=== PATIENT | female | born 1990 | race Caucasian/White ===

== ENCOUNTER 2017-04-22 13:02 | Emergency (ER) | payer BC ==
[2017-04-22] MEDS ORDERED: Metoclopramide HCl 10 MG/2 ML VIAL ONE (13:50)
--- NOTE | 2017-04-22 14:14 | CT ---
CT BRAIN PERFORMED WITHOUT CONTRAST ENHANCEMENT: HISTORY: Syncopal episode. FINDINGS: The ventricular and cisternal system is within normal limits. There are no signs of intracerebral h emorrhage or extraaxial fluid collections. The mastoid air cells and visualized sinuses are clear. IMPRESSION: No acute intracranial abnormalities. POS: [facility]
[2017-04-22 14:19] LABS: #Monocytes 0.4 thou/uL (0.11-0.59); #Neutrophils 7.1 thou/uL (1.40-6.50); %Basophils 0.4 % (0.0-1.0); %Eosinophils 0.1 % (0.0-10.0); %Lymphocytes 11.8 % (21.0-51.0); %Monocytes 4.2 % (0.0-10.0); Hematocrit 43.7 % (36.0-47.0); Mean Platelet Volume 8.3 fL (7.4-10.4); Red Blood Cell (RBC) Count 4.55 mill/uL (4.20-5.40); White Blood Cell (WBC) Count 8.5 thou/uL (4.8-10.8)
[2017-04-22 14:34] LABS: Bilirubin Negative (Negative); Blood, Urine Negative (Negative); Glucose, Urine (Dipstick) Negative (Negative); Ketone, Urine 40 mg/dL (Negative); Nitrite Negative (Negative); Protein, Urine (Dipstick) Negative (Neg-Trace); Urobilinogen 0.2 mg/dL (0.2-1.0)
[2017-04-22 14:39] LABS: Bacteria/HPF Rare-Few HPF (None Seen); Hyaline Casts/LPF 0-3 HYALINE CAST LPF (0-3 Hyaline); WBC/HPF 0-3 HPF (0-3)
[2017-04-22 14:39] LABS: ALT (SGPT) 16 U/L (8-55); AST (SGOT) 18 U/L (5-34); Alkaline Phosphatase 66 U/L (40-150); Anion Gap 10 mmol/L (10-20); BUN (Urea Nitrogen) 12 mg/dL (7.0-18.7); Bilirubin, Total 0.9 mg/dL (0.2-1.2); CK (CPK) 148 U/L (29-168); Calc. Creatinine Clearance 0 mL/min (70-130); Calcium 9.7 mg/dL (7.8-10.44); Carbon Dioxide 28 mmol/L (22-29); Chloride 104 mmol/L (98-107); Estimated GFR-MDRD Greater than 90; Globulin 2.8 g/dL (2.4-3.5); Lipase 4 U/L (8-78); Protein, Total 6.7 g/dL (6.0-8.3)
== END 2017-04-22 15:06 | disposition home or self-care (01) ==
LOC: ERS 13:02
DX: R55 Syncope and collapse (principal); E10.649 Type 1 diabetes mellitus with hypoglycemia without coma; E03.9 Hypothyroidism, unspecified; F41.9 Anxiety disorder, unspecified
CPT/HCPCS: 36415; 36416; 70450; 80053; 81003; 81015; 82550; 83690; 85025; 93005; 96365; J2765

== ENCOUNTER 2019-06-28 08:49 | Day surgery (SDC) | payer BC ==
[2019-06-28 09:28] VITALS: BMI 34.8
[2019-06-28] MEDS ORDERED: hydrALAZINE 20 MG/ML VIAL SLOW IVP PRN (09:39)
[2019-06-28] MEDS ORDERED: Acetaminophen 500 MG TAB PO SCH (09:45)
[2019-06-28 10:08] LABS: #Eosinphils 0.1 thou/uL (0.0-0.7); #Lymphocytes 1.6 thou/uL (1.20-3.40); #Monocytes 0.5 thou/uL (0.11-0.59); #Neutrophils 5.5 thou/uL (1.40-6.50); %Basophils 0.6 % (0.0-1.0); %Eosinophils 0.7 % (0.0-10.0); %Monocytes 6.8 % (0.0-10.0); %Neutrophils 70.9 % (42.0-75.0); Hemoglobin 12.6 g/dL (12.0-16.0); Mean Corpuscular HGB CONC 35.1 g/dL (32.0-36.0); Mean Corpuscular Hemoglobin 32.8 pg (27.0-31.0); Mean Corpuscular Volume 93.4 fL (78.0-98.0); Mean Platelet Volume 9.3 fL (7.4-10.4); Platelet Count 187 thou/uL (130-400); RBC Distribution Width 10.8 % (11.5-14.5); Red Blood Cell (RBC) Count 3.84 mill/uL (4.20-5.40); White Blood Cell (WBC) Count 7.8 thou/uL (4.8-10.8)
--- NOTE | 2019-06-28 10:13 | HP ---
TIME OF EVALUATION: 929. LOCATION: Triage in Labor and Delivery, bed B. CHIEF COMPLAINT: She is here for blood pressure evaluation as her blood pressure at work was 145/95. The patient also has a mild headache. The patient sees Dr. Saritha Damon for care. HISTORY OF PRESENT ILLNESS: In brief, this is a 28-year-old, G1, P0, at 36 weeks and 0 days with a history of pre-existing/pregestational diabetes, who is on an insulin pump. She states that her head began to hurt earlier today. She took her blood pressure and it was 145/95. Blood pressures here are 137/89 and 134/89. She has good movement. Denies contractions or vaginal bleeding. Her random blood sugar on arrival was 162, so the patient just self-administered Humalog per her protocol. REVIEW OF SYSTEMS: Complete review of systems was checked and is otherwise negative unless specified in the HPI above. There are no visual changes reported. PAST MEDICAL HISTORY: Pre-existing diabetes for which she has an insulin infusion pump. ALLERGIES: NONE. SURGICAL HISTORY: None. OB HISTORY: She is a G1, P0. monitor; heart tones have been reviewed by me and they are reactive in the 130s to 140s. There are no pathological decelerations. There are no contractions on tocodynamometer. ASSESSMENT: This is a 28-year-old, G1, P0, at 36 weeks and 0 days with borderline blood pressures with blood pressures here being 137/89 and 134/89. She has a history of pre-existing diabetes and she is on an insulin pump. PLAN: 1. We will do blood pressure observation for 4 hours. 2. I have ordered a CBC and a complete metabolic profile and a urine lohjlou-na-ldcqjsatbm ratio protocol. 3. I have also written for Tylenol p.r.n. 4. As the patient is under 37 weeks, we will try to do expectant management until 37 weeks if there is a concern of her blood pressure. We will deliver if there is evidence of severe persistent criteria. Otherwise, expectant management is advised. We will also consider Celestone in case the patient requires delivery before 37 weeks. Job ID: [id number]
[2019-06-28 10:29] LABS: ALT (SGPT) 39 U/L (8-55); AST (SGOT) 33 U/L (5-34); Albumin 2.8 g/dL (3.5-5.0); Alkaline Phosphatase 134 U/L (40-110); Anion Gap 12 mmol/L (10-20); BUN (Urea Nitrogen) 7 mg/dL (7.0-18.7); Bilirubin, Total 0.4 mg/dL (0.2-1.2); Calc. Creatinine Clearance 245 mL/min (70-130); Calcium 8.3 mg/dL (7.8-10.44); Carbon Dioxide 21 mmol/L (22-29); Chloride 109 mmol/L (98-107); Estimated GFR-MDRD Greater than 90; Glucose 156 mg/dL (70-105); Potassium 3.8 mmol/L (3.5-5.1); Protein, Total 5.8 g/dL (6.0-8.3); Sodium 138 mmol/L (136-145)
[2019-06-28 10:49] LABS: Creatinine, Urine 36.16 mg/dL (47-110); Protein, Urine Random Quant Less than 10 mg/dL (1-14)
--- NOTE | 2019-06-28 12:54 | PDOC.EVN ---
Event Note - Event Note Event Note: Labs are normal and UP is negative
== END 2019-06-28 13:25 | disposition home or self-care (01) ==
LOC: L&D/OP 08:49
PROVIDERS: ATTEND Obstetrics & Gynecology
DX: O99.89 Other specified diseases and conditions complicating pregnancy, childbirth and the puerperium (principal); R03.0 Elevated blood-pressure reading, without diagnosis of hypertension; O24.313 Unspecified pre-existing diabetes mellitus in pregnancy, third trimester; E11.9 Type 2 diabetes mellitus without complications; Z3A.36 36 weeks gestation of pregnancy; Z79.4 Long term (current) use of insulin
CPT/HCPCS: 36415; 80053; 82570; 84156; 85025

== ENCOUNTER 2019-06-29 14:57 | Day surgery (SDC) | payer BC ==
[2019-06-29 15:36] VITALS: BMI 34.8
[2019-06-29] MEDS ORDERED: hydrALAZINE 20 MG/ML VIAL SLOW IVP PRN (16:00)
--- NOTE | 2019-06-29 16:08 | PDOC.FPROB ---
FMR OB H&P: HPI - History of Present Illness Chief Complaint: headache, blurry vision Indentification: 28 yo at 36.1 wga by 12 wk sono History of Present Illness: Pt here with and mother complaining of worsening headache and blurry vision today. Was seen here yesterday for similar complaints. When she left here , says she took a 500mg Tylenol around 1600, did not really help. Tried to sleep , and when she awoke this AM reports a headache of severity 7/10. Endorses nausea without vomiting, epigastric and RUQ abdominal pain. Of note, she is a T1DM on insulin pump and has hypothyroidism. Denies ctx, LOF, and VB. Notices decreased FM today compared w/ yesterday. Does not think fetus has moved >5 times in an hour today. Primary Care Physician: Sania FMR OB H&P: Current - Care : 1 Para: 0 Gestational age: 36.1 Due date: 07/26/2019 Dating Criteria: 12wk sono Course/Complications: T1DM, hypothyroid, Sono showing cerebral ventriculomegaly w/ f/u MRI to be scheduled. - OB Labs Blood type: A RH: positive Antibody Screen: negative HIV: negative RPR: negative HepBsAg: negative Rubella: immune Gonorrhea: negative Chlamydia: negative Pap Smear: NILM A1c: 6.7 on 03/05, 7.3 on 01/06 GBS: unknown H&H: 13.1/39.0 FMR OB H&P: History - Past Medical History PMH: T1DM Hypothyroid - OB History OB History: Nulliparous. First - CLINICAL COURIER History CLINICAL COURIER History: None - Surgical History Sx History: None. - Social History Social History: Denies A/T/D. - Family History Family History: None. FMR OB H&P: Medications - Current Home Medications: Medication Instructions Recorded Confirmed Type HumaLOG [HumaLOG Vial] 03/19/13 03/19/13 History Levothyroxine Sodium [Synthroid] 75 mcg PO DAILY 03/19/13 06/28/19 History Subcutaneous Insulin Pump [Insulin 1 each MC ASDIR 03/19/13 03/19/13 History Pump] Allergies/Adverse Reactions: Allergies Allergy/AdvReac Type Severity Reaction Status Date / Time No Known Allergies Allergy Verified 06/29/19 15:32 FMR OB H&P: ROS - Review of Systems General: reports: weight/appetite/sleep changes (decreased appetite). denies: fever/chills Eyes: reports: vision changes (blurry vision) ENT: reports: nasal congestion, rhinorrhea, sinus pain/pressure Cardiovascular: reports: edema. denies: chest pain, palpitation Respiratory: reports: cough. denies: shortness of breath Gastrointestinal: reports: abdominal pain, nausea. denies: vomiting, diarrhea, constipation Genitourinary (Female): denies: dysuria, vaginal pain, vaginal bleeding, vaginal pressure Musculoskeletal: reports: swelling. denies: pain Neurologic: denies: numbness, seizures, weakness Integumentary: denies: itching, rash Hematologic/Lymphatic: denies: prolonged or excessive bleeding Psychological: denies: depression, anxiety FMR OB H&P: Vital Signs - Maternal Vital signs: 136/76 HR 88 - Heart Tones Baseline: 140 Variability: moderate Acceleration: present Deceleration: variable (one) Category: category 1 [place] contractions every: none, some uterine irritability FMR OB H&P: Physical Exam - Physical Exam General: NAD, awake, alert and oriented HEENT: normocephalic and atraumatic, MMM, no scleral icterus, normal nasal mucosa, oropharynx clear Neck: supple, FROM, trachea midline Heart: RRR, normal S1/S2 Deviation from normal: edema in arms and legs bilaterally, non pitting General: CTAB, no respiratory distress Abdomen: soft, gravid Deviation from normal: TTP over epigastrium and mildly over RUQ Neurological: no focal deficit Skin: no rash Lymphatic: no unusual bruising or bleeding, no purpura, no petechia Psychiatric: intact recent and remote memory, normal mood and affect - Pelvic Exam Estimated Weight: 7 lbs FMR OB H&P: A/P - Problem List (1) Diabetes in Current Visit: No Status: Acute Code(s): O24.919 - UNSP DIABETES MELLITUS IN , UNSPECIFIED TRIMESTER Disposition: observation on L&D for pre-eclampsia r/o Discussion: Date/Time: 06/29/19 1607 Headache in - elevated BPs yesterday with negative toxemia labs and sent home - return today w/ similar symptoms, BPs 130s/70s - will monitor on L&D. Mild symptoms of preeclampsia: RUQ pain, headache. No scotomata. - BP q15 min - CBC, CMP, urine protein/creatinine T1DM, Hypothyroidism in - will monitor, pt has insulin pump. States sugars have been lower lately, as low as 55 at night. Has not had much of an appetite today and adjusts her insulin accordingly. - plans for IOL next week ~37 weeks. This H&P was discussed with Dr. Ramirez, who agrees with the above documentation and plan. Signature: Yuan Ibrahim MD PGY1 Addendum - Attending - Attending Attestation Date/Time: 06/29/19 271 I personally evaluated the patient and discussed the management with Dr. Ibrahim. I agree with the History, Examination, Assessment and Plan documented above.
[2019-06-29 16:52] LABS: #Eosinphils 0.1 thou/uL (0.0-0.7); #Lymphocytes 1.8 thou/uL (1.20-3.40); #Monocytes 0.7 thou/uL (0.11-0.59); #Neutrophils 5.8 thou/uL (1.40-6.50); %Basophils 0.5 % (0.0-1.0); %Eosinophils 0.7 % (0.0-10.0); %Lymphocytes 21.6 % (21.0-51.0); %Monocytes 8.4 % (0.0-10.0); %Neutrophils 68.7 % (42.0-75.0); Mean Corpuscular HGB CONC 34.5 g/dL (32.0-36.0); Mean Corpuscular Hemoglobin 32.4 pg (27.0-31.0); Mean Platelet Volume 9.4 fL (7.4-10.4); Platelet Count 195 thou/uL (130-400); RBC Distribution Width 11.1 % (11.5-14.5); Red Blood Cell (RBC) Count 4.03 mill/uL (4.20-5.40); White Blood Cell (WBC) Count 8.5 thou/uL (4.8-10.8)
[2019-06-29 17:14] LABS: ALT (SGPT) 38 U/L (8-55); AST (SGOT) 32 U/L (5-34); Albumin 2.8 g/dL (3.5-5.0); Alkaline Phosphatase 151 U/L (40-110); Anion Gap 8 mmol/L (10-20); BUN (Urea Nitrogen) 6 mg/dL (7.0-18.7); Bilirubin, Total 0.4 mg/dL (0.2-1.2); Calc. Creatinine Clearance 249 mL/min (70-130); Calcium 8.2 mg/dL (7.8-10.44); Carbon Dioxide 24 mmol/L (22-29); Chloride 109 mmol/L (98-107); Estimated GFR-MDRD Greater than 90; Globulin 3.1 g/dL (2.4-3.5); Glucose 112 mg/dL (70-105); Potassium 3.7 mmol/L (3.5-5.1); Protein, Total 5.9 g/dL (6.0-8.3); Sodium 137 mmol/L (136-145)
[2019-06-29 17:40] LABS: Creatinine, Urine 128.48 mg/dL (47-110)
--- NOTE | 2019-06-29 18:14 | PDOC.EVN ---
Event Note - Event Note Event Note: BPs remain reassuring. PIH labs are all negative. Urine Pro/Cr= .14. Home with precautions. Has appt. with Dr. Tovar on Saturday.
== END 2019-06-29 18:20 | disposition home or self-care (01) ==
LOC: L&D/OP 14:57
PROVIDERS: ATTEND Obstetrics & Gynecology
DX: O99.89 Other specified diseases and conditions complicating pregnancy, childbirth and the puerperium (principal); R51 Headache; O24.414 Gestational diabetes mellitus in pregnancy, insulin controlled; O99.283 Endocrine, nutritional and metabolic diseases complicating pregnancy, third trimester; E03.9 Hypothyroidism, unspecified; Z3A.36 36 weeks gestation of pregnancy; Z79.4 Long term (current) use of insulin; Z79.899 Other long term (current) drug therapy
CPT/HCPCS: 36415; 80053; 82570; 84156; 85025; 99284

== ENCOUNTER 2019-07-09 18:00 | Inpatient (IN) | payer BC ==
--- NOTE | 2019-07-09 19:00 | PDOC.LDHP ---
Labor and Delivery H&P Chief complaint: scheduled induction HPI: 28 yo G1 @ 37w4d by 12 week CRL who presents for IOL due to IDDM controlled with insulin pump and GHTN (not on medications). RFs: IDDM (CDM) on insulin pump (basal rate ranges from 1.4-2.3), GHTN, hypothyroidism on thyroid replacement, mild bilateral cerebral ventriculomegaly noted on MRI as well (otherwise, normal). Current gestational age (weeks): 37 Due date: 07/26/19 Dating criteria: first trimester ultrasound Grav: 1 Para: 0 Current complications: pregestational diabetes, gestational hypertension, other (mild bilateral cerebral ventriculomegaly) Abnormal US findings: Yes (mild bilateral cerebral ventriculomegaly (11 mm )) Past Medical History: CDM, on insulin Current medications: other (Insulin pump ASA) Previous surgical history: none Allergies/Adverse Reactions: Allergies Allergy/AdvReac Type Severity Reaction Status Date / Time No Known Allergies Allergy Verified 06/29/19 15:32 Social history: none - Physical Exam Vital signs reviewed and normal: yes General: NAD Heart: RRR Lungs: nonlabored breathing Abdomen: gravid Extremeties: trace edema FHT: category 1 (140s, mod kim, +accels, no decels) [place] contractions every: q 2 min - Vaginal Exam cm dilated: 1 (cephalic; cook placed 80/80 cc ) Effacement: 50% Station: -2 - OB Labs Blood type: A RH: positive Antibody Screen: negative HIV: negative RPR: negative HEPSAg: negative GBS: positive Urine drug screen: negative Rubella: immune Additional Labs: Avg HbA1C 6.2 TSH wnl Declined NIPT - Assessment 37w4d IUP IOL CDM Hypothyroidism Mild bilateral cerebral ventriculomegaly (11 mm) GBS+ - Plan Plan: admit to L&D, cervical ripening, GBS antibiotic prophylaxis, informed consent obtained, anesthesia consult for pain management -: Allow pt to manage insulin with pump during labor, goal < 120. Will notify neonatology of mild bilateral cerebral ventriculomegaly
[2019-07-10 01:03] VITALS: BMI 34.8
[2019-07-10] MEDS ORDERED: Butorphanol Tartrate 1 MG/ML VIAL SLOW IVP PRN (01:12)
[2019-07-10] MEDS ORDERED: hydrALAZINE 20 MG/ML VIAL SLOW IVP PRN (01:12)
[2019-07-10] MEDS ORDERED: NS / Oxytocin 40 units/1000ml 1,000 ML IV PRN (01:12)
[2019-07-10] MEDS ORDERED: Carboprost 250 MCG/ML AMP IM PRN (01:12)
[2019-07-10] MEDS ORDERED: Diphenoxylate HCl/Atropine Tablet PO PRN (01:12)
[2019-07-10] MEDS ORDERED: Promethazine HCl 25 MG/ML VIAL IM PRN ×2 (01:12→09:39)
[2019-07-10] MEDS ORDERED: Acetaminophen 500 MG TAB PO PRN (01:12)
[2019-07-10] MEDS ORDERED: Ibuprofen 800 MG TAB PO PRN (01:12)
[2019-07-10] MEDS ORDERED: HYDROcodone/Acetaminophen 5/325 mg Tablet PO PRN (01:12)
[2019-07-10] MEDS ORDERED: Misoprostol 200 MCG TAB PR PRN (01:12)
[2019-07-10] MEDS ORDERED: Methylergonovine 0.2 MG/ML VIAL IM PRN (01:12)
[2019-07-10] MEDS ORDERED: Lidocaine 1% (PF) 30 ML VIAL SC PRN (01:12)
[2019-07-10] MEDS ORDERED: Penicillin G Potassium 5 MILL.UNITS in Sodium Chloride 0.9% 100 ML IVPB SCH (01:30)
[2019-07-10] MEDS: Misoprostol 100 MCG TAB VAG SCH (01:40)
[2019-07-10 01:49] LABS: Hemoglobin 12.7 g/dL (12.0-16.0); Mean Corpuscular HGB CONC 34.8 g/dL (32.0-36.0); Mean Corpuscular Hemoglobin 32.1 pg (27.0-31.0); Mean Corpuscular Volume 92.2 fL (78.0-98.0); Mean Platelet Volume 10.2 fL (7.4-10.4); Platelet Count 194 thou/uL (130-400); Red Blood Cell (RBC) Count 3.96 mill/uL (4.20-5.40); White Blood Cell (WBC) Count 9.6 thou/uL (4.8-10.8)
[2019-07-10 02:06] LABS: ALT (SGPT) 19 U/L (8-55); AST (SGOT) 21 U/L (5-34); Alkaline Phosphatase 173 U/L (40-110); Anion Gap 12 mmol/L (10-20); BUN (Urea Nitrogen) 8 mg/dL (7.0-18.7); Bilirubin, Total 0.3 mg/dL (0.2-1.2); Calc. Creatinine Clearance 249 mL/min (70-130); Calcium 8.4 mg/dL (7.8-10.44); Carbon Dioxide 22 mmol/L (22-29); Chloride 108 mmol/L (98-107); Estimated GFR-MDRD Greater than 90; Globulin 2.6 g/dL (2.4-3.5); Glucose 102 mg/dL (70-105); Potassium 3.9 mmol/L (3.5-5.1); Protein, Total 5.6 g/dL (6.0-8.3); Sodium 138 mmol/L (136-145)
[2019-07-10 02:25] LABS: HBSAg Index 0.15 S/CO (0-0.99); HIV (1/2) Antibody/Antigen Non-Reactive (NonReactive); HIV 1/2 INDEX 0.09 S/CO (<1.00); Hep B Surf Ag Non-Reactive S/CO (NonReactive)
[2019-07-10 03:29] LABS: Bilirubin Negative (Negative); Blood, Urine Negative (Negative); Clarity Turbid (Clear); Glucose, Urine (Dipstick) Normal (Negative); Leukocyte 75 Leu/uL (Negative); Nitrite Negative (Negative); Protein, Urine (Dipstick) Negative (Neg-Trace); RBC/HPF 0-3 HPF (0-3); Squamous Epithelial 0-3 HPF (0-3); Urobilinogen Normal mg/dL (Less than 2)
[2019-07-10 03:31] LABS: Bacteria/HPF 1+ HPF (None Seen)
[2019-07-10 04:33] LABS: Syphilis Antibody Nonreactive (Nonreactive); Syphilis Antibody Index 0.04 S/CO (<1.00 Non-Reactive)
[2019-07-10] MEDS ORDERED: NS w/ Oxytocin 10 units 500 ML IV SCH (06:00)
[2019-07-10] MEDS: Penicillin G 2.5 MILL.units 2.5 MILL.UNITS in Premix Bag 1 BAG IVPB SCH ×4 (06:22→20:20)
[2019-07-10] MEDS: Lactated Ringer's 1,000 ML IV SCH ×2 (06:22→14:16)
[2019-07-10] MEDS ORDERED: Fentanyl 4 mcg/Bup 0.1% Cadd 100 ML ONE ×2 (08:37→16:50)
[2019-07-10] MEDS ORDERED: Bupivacaine 0.25% HCL 30 ML VIAL ONE (09:34)
[2019-07-10] MEDS ORDERED: ePHEDrine/0.9% NaCl/PF SYRINGE 50 mg/10 ml SLOW IVP PRN (09:39)
[2019-07-10] MEDS ORDERED: Naloxone HCl 0.4 mg/ml Vial IVP PRN ×2 (09:39)
[2019-07-10] MEDS ORDERED: diphenhydrAMINE 50 MG/ML VIAL IVP PRN (09:39)
[2019-07-10] MEDS ORDERED: Acetaminophen 325 MG TAB PO PRN (09:39)
[2019-07-10] MEDS ORDERED: Ondansetron PF 4 MG/2 ML Vial IVP PRN (09:39)
[2019-07-10] MEDS ORDERED: Lactated Ringer's 500 ML IV PRN (09:39)
[2019-07-10] MEDS ORDERED: Communication Order-Pharmacy FS SCH (09:45)
[2019-07-10] MEDS ORDERED: Fentanyl 4 mcg/Bupivacaine 0.1% Cassette 100 ML EPIDURAL SCH (09:45)
--- NOTE | 2019-07-10 13:29 | PDOC.LDPN ---
Labor & Delivery Progress Note - Subjective Subjective: comfortable - Objective Vital signs reviewed and normal: yes General: NAD Uterine fundus: non tender SVE: balloon out Dilation: 6 Effacement: 75% Station: -2 FHT: category 1 (150s, mod kim, + accels, no decels ) [place] contractions every: q1-3 min AROM: clear fluid - Assessment (1) Diabetes Code(s): E11.9 - TYPE 2 DIABETES MELLITUS WITHOUT COMPLICATIONS Current Visit : Yes Status: Acute (2) 37 weeks gestation of Code(s): Z3A.37 - 37 WEEKS GESTATION OF Current Visit: Yes Status : Acute (3) Gestational hypertension Code(s): O13.9 - GESTATIONAL HTN W/O SIGNIFICANT PROTEINURIA, UNSP TRIMESTER Current Visit: Yes Status: Acute (4) Encounter for induction of labor Code(s): Z34.90 - ENCNTR FOR SUPRVSN OF NORMAL , UNSP, UNSP TRIMESTER Current Visit: Yes Status: Acute (5) abnormality in antepartum Code(s): O35.9XX0 - MATERNAL CARE FOR ABNORMALITY AND DAMAGE, UNSP, UNSP Current Visit: Yes Status: Acute (6) Hypothyroidism Code(s): E03.9 - HYPOTHYROIDISM, UNSPECIFIED Current Visit: Yes Status: Acute (7) Group B streptococcal carriage complicating Code(s): O99.820 - STREPTOCOCCUS B CARRIER STATE COMPLICATING Current Visit: Yes Status: Acute -: s/p cytotec x 1 and balloon out. s/p AROM Continue mgmt of labor. Continue insulin pump mgmt per pt. BG wnl and documented. Neonatology aware of MRI findings. GBS PPX
[2019-07-10] MEDS: Ondansetron PF 4 MG/2 ML Vial IVP PRN ×2 (15:05→22:15)
[2019-07-10] MEDS ORDERED: Dextrose 50% Abboject 50 ML SYRINGE SLOW IVP PRN (15:59)
[2019-07-10] MEDS ORDERED: Dextrose 5% in Water 1,000 ML IV PRN (15:59)
--- NOTE | 2019-07-10 17:35 | PDOC.LDPN ---
Labor & Delivery Progress Note - Subjective Subjective: comfortable - Objective Vital signs reviewed and normal: yes General: NAD Uterine fundus: non tender Dilation: 6 Effacement: 75% Station: -2 FHT: category 1 (150s, mod kim, +accels, early decels ) [place] contractions every: q3-4 min IUPC placed: yes - Assessment (1) Diabetes Code(s): E11.9 - TYPE 2 DIABETES MELLITUS WITHOUT COMPLICATIONS Current Visit : Yes Status: Acute (2) 37 weeks gestation of Code(s): Z3A.37 - 37 WEEKS GESTATION OF Current Visit: Yes Status : Acute (3) Gestational hypertension Code(s): O13.9 - GESTATIONAL HTN W/O SIGNIFICANT PROTEINURIA, UNSP TRIMESTER Current Visit: Yes Status: Acute (4) Encounter for induction of labor Code(s): Z34.90 - ENCNTR FOR SUPRVSN OF NORMAL , UNSP, UNSP TRIMESTER Current Visit: Yes Status: Acute (5) abnormality in antepartum Code(s): O35.9XX0 - MATERNAL CARE FOR ABNORMALITY AND DAMAGE, UNSP, UNSP Current Visit: Yes Status: Acute (6) Hypothyroidism Code(s): E03.9 - HYPOTHYROIDISM, UNSPECIFIED Current Visit: Yes Status: Acute (7) Group B streptococcal carriage complicating Code(s): O99.820 - STREPTOCOCCUS B CARRIER STATE COMPLICATING Current Visit: Yes Status: Acute -: Pitocin has been started. IUPC placed. Position changes. Monitor labor. Insulin pump off and BG wnl. Continue IVF and monitor BG.
[2019-07-10] MEDS ORDERED: NS / Oxytocin 40 units/1000ml 1,000 ML ONE (22:17)
[2019-07-10] MEDS ORDERED: Lidocaine 1% (PF) 30 ML VIAL ONE (22:17)
[2019-07-11 02:45] LABS: Actual Bicarbonate (HCO3v) 22 mEq/L (22-28); Base Excess -7.4 mEq/L (-2.0 to +3.0)
[2019-07-11 02:55] LABS: pH (Cord, venous) 7.19 (7.32-7.43)
--- NOTE | 2019-07-11 03:17 | PDOC.OPDEL ---
OB Operative/Delivery Note Delivery Dr/Surgeon: Saritha Damon DO Pre-Delivery Diagnosis: medically indicated induction Procedure/Post Delivery Dx: operative vaginal delivery (Outlet FAVD due to maternal exhaustion) Weeks gestation: 37 Anesthesia: epidural - Findings A Sex: male Weight: 8 lb 5 oz (ELIE position ) - 1 min: 7 - 5 min: 8 - Additional Findings/Plan Placenta delivered: spontaneous Repaired Obstetrical Laceration: other (3A perineal laceration bilateral vaginal sulcus/side wall lacerations) Estimated blood loss: QBL 316 cc Compilations/Other Findings: in SOFÍA position Good tone after delivery, placed in warmer with NICU Normal appearing placenta. Lacerations: Bilateral vaginal sulcus/side wall and 3rd degree laceration Post delivery plan: routine recovery
[2019-07-11] MEDS ORDERED: CEFAZOLIN 2 GM in Premix Bag 1 BAG IVPB SCH (03:30)
[2019-07-11] MEDS ORDERED: diphenhydrAMINE 25 MG CAP PO PRN (04:01)
[2019-07-11] MEDS ORDERED: hydrALAZINE 20 MG/ML VIAL SLOW IVP PRN (04:01)
[2019-07-11] MEDS ORDERED: Milk Of Magnesia 30 ML UDCUP PO PRN (04:01)
[2019-07-11] MEDS ORDERED: Lanolin Ointment 7 GM TUBE TOP PRN (04:01)
[2019-07-11] MEDS ORDERED: Preparation H Ointment 28 GM TUBE PR PRN (04:01)
[2019-07-11] MEDS ORDERED: Benzocaine-Menthol 82.5 ML CAN TOP PRN (04:01)
[2019-07-11] MEDS ORDERED: NS / Oxytocin 40 units/1000ml 1,000 ML IV SCH (04:01)
[2019-07-11] MEDS: Ibuprofen 800 MG TAB PO SCH ×3 (04:38→20:10)
[2019-07-11] MEDS: HYDROcodone/Acetaminophen 5/325 mg Tablet PO PRN ×3 (04:39→20:10)
[2019-07-11] MEDS: Misoprostol 100 MCG TAB VAG SCH ×4 (04:56→07:22)
[2019-07-11] MEDS: Sodium Chloride 0.9% 1,000 ML IV SCH ×3 (04:56→14:41)
[2019-07-11] MEDS: Penicillin G 2.5 MILL.units 2.5 MILL.UNITS in Premix Bag 1 BAG IVPB SCH ×2 (07:22→07:27)
[2019-07-11] MEDS: Lactated Ringer's 1,000 ML IV SCH ×2 (07:22→07:23)
[2019-07-11] MEDS: Docusate Calcium (SURFAK) 240 MG CAP PO SCH ×2 (08:31→20:10)
[2019-07-11] MEDS: Prenatal Vitamin 1 TAB PO SCH (08:31)
[2019-07-12] MEDS: HYDROcodone/Acetaminophen 5/325 mg Tablet PO PRN ×2 (02:48→08:35)
[2019-07-12 05:22] LABS: Hemoglobin 9.9 g/dL (12.0-16.0); Mean Corpuscular HGB CONC 33.2 g/dL (32.0-36.0); Mean Corpuscular Hemoglobin 31.5 pg (27.0-31.0); Mean Corpuscular Volume 94.9 fL (78.0-98.0); Mean Platelet Volume 9.8 fL (7.4-10.4); Platelet Count 169 thou/uL (130-400); RBC Distribution Width 11.3 % (11.5-14.5); Red Blood Cell (RBC) Count 3.13 mill/uL (4.20-5.40); White Blood Cell (WBC) Count 14.6 thou/uL (4.8-10.8)
[2019-07-12 05:43] LABS: Anion Gap 9 mmol/L (10-20); BUN (Urea Nitrogen) 9 mg/dL (7.0-18.7); Calc. Creatinine Clearance 237 mL/min (70-130); Calcium 7.7 mg/dL (7.8-10.44); Carbon Dioxide 23 mmol/L (22-29); Chloride 112 mmol/L (98-107); Estimated GFR-MDRD Greater than 90; Glucose 105 mg/dL (70-105); Potassium 3.9 mmol/L (3.5-5.1); Sodium 140 mmol/L (136-145)
[2019-07-12] MEDS: Sodium Chloride 0.9% 1,000 ML IV SCH ×3 (06:03→15:03)
[2019-07-12] MEDS: Ibuprofen 800 MG TAB PO SCH ×3 (06:19→22:00)
[2019-07-12] MEDS: Misoprostol 100 MCG TAB VAG SCH ×4 (06:42→15:04)
--- NOTE | 2019-07-12 07:57 | PRG ---
DATE OF SERVICE: 07/12/2019 TIME OF SERVICE: 0705 hours. SOCIAL HISTORY: day #1 to 2. Ms. Rosas is a G1, now P1 with insulin-dependent diabetes, now on day #1. She had forceps with third-degree laceration on early 07/11 a.m. She is resting comfortably and has no complaints. She states that she has cut her insulin basal dose in half . OBJECTIVE: VITAL SIGNS: T-max 97.8, temperature 97.6, pulse 100, respirations 14, and blood pressure 128/65. HEENT: Within normal limits. LUNGS: Clear to auscultation bilaterally. HEART: Regular rate and rhythm. ABDOMEN: Fundus firm. Normal lochia. Perineum intact. EXTREMITIES: Without clubbing, cyanosis, or edema. LABORATORY DATA: Hematocrit went from 36.5 to 29.7 . Basic metabolic panel was within normal limits. The patient is monitoring home blood sugar with insulin pump. IMPRESSION: Status post forceps, insulin-dependent diabetic, day #1. PLAN: Routine care, probable on 07/13 discharge. Job ID: [id number]
[2019-07-12] MEDS: Prenatal Vitamin 1 TAB PO SCH (08:34)
[2019-07-12] MEDS: Docusate Calcium (SURFAK) 240 MG CAP PO SCH ×2 (08:34→22:00)
[2019-07-13] MEDS: Ibuprofen 800 MG TAB PO SCH ×2 (06:09→13:50)
[2019-07-13 08:07] VITALS: BP 123/64; TEMP 97.9
--- NOTE | 2019-07-13 08:57 | PDOC.PP ---
Post Progress Note Post Day #: 2 Subjective: Pt doing well this morning. Minimal lochia < menses. She is up and ambulatory and urinating well. Baby is breast feeding with formula supplementation. BS well controlled. No Fever, CP or SOB. PO intake tolerated: yes Flatus: yes Ambulation: yes Vital Signs (12 hours) Temp Pulse Resp BP Pulse Ox 07/13/19 08:06 97.9 F 85 20 123/64 98 Weight Weight 243 lb - Physical Examination General: NAD Respiratory: non-labored breathing Abdominal: lochia, no distention, appropriately TTP Fundus firm & at: 1 cm below umbilicus Extremities: negative homans (B) Skin: no rash Neurological: no gross focal deficits Psychiatric: A&Ox3, normal affect Result Diagrams: 07/12/19 05:11 07/12/19 05:11 Additional Labs: Post Labs Blood Type A POSITIVE 07/10/19 02:14 Hep Bs Antigen Non-Reactive S/CO (NonReactive) 07/10/19 01:32 (1) Vaginal delivery Code(s): O80 - ENCOUNTER FOR FULL-TERM UNCOMPLICATED DELIVERY Status: Acute (2) Diabetes Code(s): E11.9 - TYPE 2 DIABETES MELLITUS WITHOUT COMPLICATIONS Status: Acute Qualifiers: Diabetes mellitus type: type 1 (3) Hypothyroidism Code(s): E03.9 - HYPOTHYROIDISM, UNSPECIFIED Status: Acute - Assessment/Plan Pt doing well on PPD2. VSS. Afebrile. Pt's blood sugars remain well controlled and WNL. She will continue her current basal rate. Plan for discharge later today with patient to continue stool softeners for full 6 weeks. Pt to follow up in our off for PP visit in 6 weeks. She can call for any concerns. Discharge planning discussed with patient.
[2019-07-13] MEDS: Docusate Calcium (SURFAK) 240 MG CAP PO SCH (09:17)
[2019-07-13] MEDS: Prenatal Vitamin 1 TAB PO SCH (09:17)
[2019-07-13] MEDS: Sodium Chloride 0.9% 1,000 ML IV SCH ×2 (09:24→15:42)
[2019-07-13] MEDS: Misoprostol 100 MCG TAB VAG SCH ×2 (09:28→15:42)
--- NOTE | 2019-07-13 11:28 | OP ---
DATE OF PROCEDURE: 07/11/2019 PREOPERATIVE DIAGNOSES: 1. A 37-week 5-day intrauterine . 2. Class C diabetes mellitus. 3. Gestational hypertension. 4. Induction of labor. 5. Protracted second stage of labor with maternal exhaustion. POSTOPERATIVE DIAGNOSES: 1. A 37-week 5-day intrauterine . 2. Class C diabetes mellitus. 3. Gestational hypertension. 4. Induction of labor. 5. Protracted second stage of labor with maternal exhaustion. PROCEDURES PERFORMED: 1. Forceps-assisted vaginal delivery. 2. Repair of third-degree perineal vaginal laceration and bilateral vaginal sulcus lacerations. COMPLICATIONS: None. QUANTITATIVE BLOOD LOSS: 316 mL. FINDINGS: Viable male in cephalic presentation with OA position with Apgars 7 and 9. A third-degree perineal laceration and bilateral vaginal sulcal lacerations were repaired and hemostatic. Normal-appearing placenta. INDICATIONS FOR PROCEDURE: Ms. Katy Rosas is a 28-year-old, G1, P0 at 37 weeks and 5 days, who was admitted for an induction due to class C diabetes and gestational hypertension. The patient underwent an induction with Cytotec and later Pitocin and progressed to the second stage of labor. She then pushed for 3 to 3-1/2 hours. At this point, the patient was counseled on option due to maternal exhaustion. She desired assistance with an operative vaginal delivery. A forceps-assisted vaginal delivery was recommended. All risks, benefits, alternatives, and indications were reviewed with the patient. The fetus was reassuring throughout the labor course and also throughout the second stage of labor. DESCRIPTION OF PROCEDURE: The patient had an epidural, which was adequate. She was placed in dorsal lithotomy position in [facility]. A red rubber catheter was placed to completely drain the bladder. The position was assessed to be in straight OA position, and this was also confirmed with ultrasonography. Estimated weight was approximately 8 pounds. The Jimenez-Luikart forceps were then inserted and appropriately secured and interlocking appropriately. With maternal contraction, maternal expulsive efforts were performed and traction was placed on the Jimenez-Luikart forceps. The 's head was then delivered within one contraction with four rounds of maternal pushing. Prior to complete expulsion of the head, the forceps were disarticulated and the remainder of the head was delivered using Ritgen's maneuver. The remainder of the was delivered atraumatically. The infant's cord was clamped and cut. was handed to the waiting neonatology team. Cord sample for gases as well as cord blood was obtained. The placenta was then delivered spontaneously intact. The uterine fundus had good tone with the use of Pitocin and uterine massage. The vaginal lacerations were evaluated. There was a third-degree perineal laceration just to the superficial portion of the external anal sphincter. The external sphincter was grasped using Allis clamps bilaterally and this aspect of the third-degree laceration was reinforced using 2-0 Vicryl suture in a clockwise fashion at the sphincter to help reinforce the tissue and the deep portion of the remaining second-degree was then also repaired in a running fashion using chromic and the remainder of the perineal vaginal laceration was repaired in normal 2nd degree fashion. There were bilateral vaginal sulcal lacerations repaired using chromic in interlocking fashion creating hemostasis. The rectal exam was performed, after the completion of the exam, noting no suture within the rectal mucosa, and good anal sphincter tone. The counts were correct x2. The details of the procedure were reviewed with the patient and her family. All questions were answered. There were no complications. Job ID: [id number] [facility]
== END 2019-07-13 15:50 | disposition home or self-care (01) | DRG 768 ==
LOC: L&D 07-10 00:07 → 3SE 07-11 04:14
PROVIDERS: ADMIT Obstetrics & Gynecology; ATTEND Obstetrics & Gynecology
PROC: 10D07Z5 Extraction of Products of Conception, High Forceps, Via Natural or Artificial Opening (ICD-10-PCS; principal; 2019-07-11)
PROC: 0DQR0ZZ Repair Anal Sphincter, Open Approach (ICD-10-PCS; 2019-07-11)
PROC: 10907ZC Drainage of Amniotic Fluid, Therapeutic from Products of Conception, Via Natural or Artificial Opening (ICD-10-PCS; 2019-07-11)
PROC: 3E033VJ Introduction of Other Hormone into Peripheral Vein, Percutaneous Approach (ICD-10-PCS; 2019-07-11)
DX: O24.32 Unspecified pre-existing diabetes mellitus in childbirth (principal); Z37.0 Single live birth; O70.20 Third degree perineal laceration during delivery, unspecified; Z3A.37 37 weeks gestation of pregnancy; Z79.4 Long term (current) use of insulin; O13.4 Gestational [pregnancy-induced] hypertension without significant proteinuria, complicating childbirth; O99.284 Endocrine, nutritional and metabolic diseases complicating childbirth; E03.9 Hypothyroidism, unspecified; E11.9 Type 2 diabetes mellitus without complications; O99.824 Streptococcus B carrier state complicating childbirth; O35.0XX0 Maternal care for (suspected) central nervous system malformation in fetus, not applicable or unspecified
CPT/HCPCS: 36415; 51702; 80048; 80053; 81001; 82805; 85027; 86780; 86850; 86900; 86901; 87086; 87340; 87389; J0690; J2001; J2405; J2540; J2590; J3490; S0020